=== PATIENT | female | born 1970 | race Caucasian/White ===

== ENCOUNTER 2018-03-23 08:16 | Emergency (ER) | payer OTHER ==
[~2018-03-23] VITALS: Ht 160 cm; Wt 85.9 kg
[2018-03-23 09:03] LABS: BASO # 0.1 (0.02-0.10); EOS # 0.5 (0.04-0.40); EOS % 3.2 % (1.0-5.0); HEMATOCRIT 41.3 % (37.0-47.0); HEMOGLOBIN 13.8 g/dL (12.5-16.0); LYMPH# 3.5 (1.50-4.00); MEAN CELL VOLUME 89 fl (78-100); MEAN CORPUSCULAR HEMOGLOBIN 30 pg (27-31); MEAN CORPUSCULAR HGB CONC 33 g/dL (33-37); MEAN PLATELET VOLUME 9.3 fl (7.4-10.4); MONO # 1.3 (0.20-0.80); NEU # 8.6 (1.40-6.50); PLATELET COUNT 547 K/mm3 (130-400); RED BLOOD COUNT 4.64 M/mm3 (4.10-5.30); RED CELL DISTRIBUTION WIDTH 12.4 % (11.5-14.5); WHITE BLOOD COUNT 13.9 K/mm3 (4.8-10.8)
[2018-03-23 09:04] LABS: ALBUMIN 4.5 g/dL (3.5-5.0); ALT/SGPT 31 U/L (9-52); AST-SGOT 21 U/L (14-36); CALCIUM 10.1 mg/dL (8.4-10.2); CARBON DIOXIDE 28 mmol/L (22-30); GLUCOSE 114 mg/dL (65-105); LIPASE 66 U/L (23-300); POTASSIUM 3.8 mmol/L (3.6-5.0); SODIUM 137 mmol/L (137-145); TOTAL BILIRUBIN 0.3 mg/dL (0.2-1.3); TOTAL PROTEIN 7.4 g/dL (6.3-8.2)
[2018-03-23] MEDS ORDERED: CBD OIL (09:22)
[2018-03-23] MEDS ORDERED: HAIR, SKIN & N1 EACH (09:22)
[2018-03-23] MEDS ORDERED: BLACK COHOSH40 MG (09:22)
[2018-03-23] MEDS ORDERED: TURMERIC538 MG (09:22)
[2018-03-23 12:27] VITALS: BP 97/56
[2018-03-23 12:28] LABS: PH-URINE 7.5 (5.0 - 8.0); URINE APPEARANCE CLEAR; URINE COLOR YELLOW
[2018-03-23 12:29] LABS: URINE BILIRUBIN NEGATIVE (NEGATIVE); URINE BLOOD TRACE (NEGATIVE); URINE GLUCOSE NEGATIVE (NEGATIVE); URINE KETONE NEGATIVE (NEGATIVE); URINE LEUKOCYTE ESTERASE NEGATIVE (NEGATIVE); URINE NITRATE NEGATIVE (NEGATIVE); URINE PROTEIN(semi-quant) 1+ mg/dL (NEGATIVE); URINE UROBILINOGEN NORMAL (NORMAL); URINE WBC 0-1 /hpf (0-3)
== END 2018-03-23 12:48 | disposition short-term general hospital (02) ==
LOC: ED 08:16
PROVIDERS: Physician Assistant
DX: K55.059 Acute (reversible) ischemia of intestine, part and extent unspecified (principal); F17.210 Nicotine dependence, cigarettes, uncomplicated; Z87.442 Personal history of urinary calculi; Z90.49 Acquired absence of other specified parts of digestive tract; Z98.51 Tubal ligation status
CPT/HCPCS: J1644; J2270; J2405; J2550; J3010; J7030; Q9967

== ENCOUNTER 2018-05-26 22:04 | Emergency (ER) | payer OTHER ==
[~2018-05-26] VITALS: Ht 160 cm; Wt 86.4 kg
[~2018-05-26 22:04] MED LIST: BLACK COHOSH40 MG; CBD OIL; HAIR, SKIN & N1 EACH; TURMERIC538 MG
[2018-05-26 22:55] LABS: BASO # 0.1 (0.02-0.10); EOS # 0.1 (0.04-0.40); EOS % 1.5 % (1.0-5.0); HEMATOCRIT 31.4 % (37.0-47.0); HEMOGLOBIN 9.5 g/dL (12.5-16.0); LYMPH# 1.7 (1.50-4.00); MEAN CELL VOLUME 81 fl (78-100); MEAN CORPUSCULAR HEMOGLOBIN 25 pg (27-31); MEAN CORPUSCULAR HGB CONC 30 g/dL (33-37); MEAN PLATELET VOLUME 9.1 fl (7.4-10.4); MONO # 0.9 (0.20-0.80); NEU # 5.7 (1.40-6.50); PLATELET COUNT 478 K/mm3 (130-400); RED BLOOD COUNT 3.86 M/mm3 (4.10-5.30); RED CELL DISTRIBUTION WIDTH 14.8 % (11.5-14.5); WHITE BLOOD COUNT 8.5 K/mm3 (4.8-10.8)
[2018-05-26] MEDS ORDERED: MAPAP500 M2 PO (23:05)
[2018-05-26] MEDS ORDERED: BLACK COHOSH540 M1 PO (23:05)
[2018-05-26] MEDS ORDERED: TURMERIC 500 M1 EACH PO (23:06)
[2018-05-26] MEDS ORDERED: BALANCE B-1001 TA1 PO (23:07)
[2018-05-26] MEDS ORDERED: HARD NAILS 2.51 CAP PO (23:07)
[2018-05-26] MEDS ORDERED: LOPRESSOR 550 MG/TAB PO (23:08)
[2018-05-26] MEDS ORDERED: LIPITOR 40MG TA40 MG PO (23:08)
[2018-05-26] MEDS ORDERED: XARELTO20 MG PO (23:08)
[2018-05-26] MEDS ORDERED: DESYREL 100MG100 MG PO (23:09)
[2018-05-26] MEDS ORDERED: PROZAC20 M1 PO (23:09)
[2018-05-26] MEDS ORDERED: NORVASC 5MG5 MG/TAB PO (23:09)
[2018-05-26] MEDS ORDERED: IMITREX50 M1 PO (23:10)
[2018-05-26] MEDS ORDERED: CYCLOBENZAPRINE10 M1 PO (23:10)
[2018-05-26] MEDS ORDERED: CBD PO (23:12)
[2018-05-26] MEDS ORDERED: PROBIOTIC1 EACH PO (23:13)
[2018-05-27 01:19] VITALS: BP 125/76
== END 2018-05-27 01:19 | disposition home or self-care (01) ==
LOC: ED 22:04
PROVIDERS: Nurse Practitioner Family
DX: R04.0 Epistaxis (principal); D64.9 Anemia, unspecified; Z79.01 Long term (current) use of anticoagulants; Z87.442 Personal history of urinary calculi; Z98.890 Other specified postprocedural states; Z90.49 Acquired absence of other specified parts of digestive tract